=== PATIENT | female | born 1995 | race Caucasian/White ===

== ENCOUNTER → 2021-07-19 12:02 | Outpatient (BNVA) | payer BC, SELFPAY | PROVIDERS: Visit Provider Nurse Practitioner Women's Health | DX: O20.0 Threatened abortion (principal) | CPT/HCPCS: 84702; 85025; 86850; 86900 ==

== ENCOUNTER 2021-07-21 10:14 | Outpatient (CLI) | payer BC, SELFPAY ==
[2021-07-21 10:56] LABS: HCG Quantitative 4.22 mIU/mL
== END 2021-07-21 10:15 | disposition home or self-care (01) ==
LOC: LAB 10:20
PROVIDERS: PCP Nurse Practitioner Family; Visit Provider Nurse Practitioner Women's Health
DX: O20.0 Threatened abortion (principal)
CPT/HCPCS: 36415; 84702

== ENCOUNTER 2021-12-18 16:56 | Outpatient (CLI) | payer BC, SELFPAY | END 2021-12-18 16:57 | disposition home or self-care (01) | PROVIDERS: PCP Nurse Practitioner Family; Visit Provider Obstetrics & Gynecology | DX: Z34.91 Encounter for supervision of normal pregnancy, unspecified, first trimester (principal) | CPT/HCPCS: 84702 ==

== ENCOUNTER → 2021-12-20 08:25 | Outpatient (BNVA) | payer BC, MEDICAID, SELFPAY | PROVIDERS: PCP Nurse Practitioner Family; Visit Provider Obstetrics & Gynecology | DX: Z32.01 Encounter for pregnancy test, result positive (principal) | CPT/HCPCS: 84702 ==

== ENCOUNTER 2022-01-05 08:27 | Outpatient (CLI) | payer BC, MEDICAID, SELFPAY ==
--- NOTE | 2022-01-05 08:45 | US_ITS ---
WS: [id number] ULTRASOUND EARLY TECHNIQUE: Transabdominal sonography of the pelvis was performed. Followed by transvaginal sonography to better evaluate the uterus and ovaries. CLINICAL INFORMATION: Z34.90 - Encounter for supervision of normal , u... LMP: 11/21/2021 Beta hCG: Unknown. COMPARISON: None. FINDINGS: Single live intrauterine gestation with pole and yolk sac. Visualized cardiac activit y UTERUS AND GESTATIONAL SAC Intrauterine gestations: Estimated gestational age: 6w2d Estimated delivery August 29, 2022 Yolk sac: 0.4 cm. [place] rump length (CRL): 0.6 cm. heart motion: 116 BPM. Subchorionic hemorrhage: None. OVARIES Right ovary: Normal. Left ovary: Incidental corpus luteum cyst FREE FLUID None. US/US OB <=14 wk fetus w transvag IMPRESSION: 1. Single live intrauterine with pole and cardiac activity. 2. Estimated gestational age; 6w2d 3. Estimated delivery August 29, 2022 4. Cervix is long and closed. 5. Incidental corpus luteum cyst LEFT ovary. Ovaries otherwise normal. 6. No free fluid.
== END 2022-01-05 08:28 | disposition home or self-care (01) ==
PROVIDERS: PCP Nurse Practitioner Family; Visit Provider Obstetrics & Gynecology
DX: Z34.90 Encounter for supervision of normal pregnancy, unspecified, unspecified trimester (principal)
CPT/HCPCS: 76801; 76817

== ENCOUNTER → 2022-01-12 13:50 | Outpatient (BNVA) | payer BC, MEDICAID, SELFPAY | PROVIDERS: PCP Nurse Practitioner Family; Visit Provider Obstetrics & Gynecology | DX: Z34.90 Encounter for supervision of normal pregnancy, unspecified, unspecified trimester (principal) | CPT/HCPCS: 80307; 84315; 87086 ==

== ENCOUNTER → 2022-02-02 11:47 | Outpatient (BNVA) | payer BC, MEDICAID, SELFPAY | PROVIDERS: PCP Nurse Practitioner Family; Visit Provider Obstetrics & Gynecology | DX: R10.2 Pelvic and perineal pain (principal) | CPT/HCPCS: 81000; 87086 ==

== ENCOUNTER → 2022-02-14 10:26 | Outpatient (BNVA) | payer BC, SELFPAY | PROVIDERS: PCP Nurse Practitioner Family; Visit Provider Obstetrics & Gynecology | DX: Z34.90 Encounter for supervision of normal pregnancy, unspecified, unspecified trimester (principal); Z3A.00 Weeks of gestation of pregnancy not specified | CPT/HCPCS: 84315; 84443; 85025; 86592; 86762; 86803; 86850; 86900; 87340; 87491; 87591; 87661; 87806 ==

== ENCOUNTER → 2022-04-20 11:13 | Outpatient (BNVA) | payer BC, SELFPAY | PROVIDERS: PCP Nurse Practitioner Family; Visit Provider Obstetrics & Gynecology | DX: Z34.90 Encounter for supervision of normal pregnancy, unspecified, unspecified trimester (principal) | CPT/HCPCS: 84315; 87086 ==

== ENCOUNTER → 2022-04-25 13:23 | Outpatient (BNVA) | payer BC, SELFPAY | PROVIDERS: PCP Nurse Practitioner Family; Visit Provider Obstetrics & Gynecology | DX: Z34.90 Encounter for supervision of normal pregnancy, unspecified, unspecified trimester (principal) | CPT/HCPCS: 87086 ==

== ENCOUNTER → 2022-06-08 09:30 | Outpatient (BNVA) | payer BC, MEDICAID, SELFPAY | PROVIDERS: PCP Nurse Practitioner Family; Visit Provider Obstetrics & Gynecology | DX: Z34.90 Encounter for supervision of normal pregnancy, unspecified, unspecified trimester (principal); Z3A.00 Weeks of gestation of pregnancy not specified | CPT/HCPCS: 82950; 84315; 85025; 86850; 87086 ==

== ENCOUNTER → 2022-06-28 08:10 | Outpatient (BNVA) | payer BC, MEDICAID, SELFPAY | PROVIDERS: PCP Nurse Practitioner Family; Visit Provider Obstetrics & Gynecology | DX: Z34.90 Encounter for supervision of normal pregnancy, unspecified, unspecified trimester (principal); Z3A.00 Weeks of gestation of pregnancy not specified | CPT/HCPCS: 81000; 87086 ==

== ENCOUNTER 2022-07-12 09:12 | Outpatient (CLI) | payer BC, MEDICAID, SELFPAY ==
[2022-07-12] VITALS (8 sets, daily range): BP systolic 131–148; BP diastolic 80–86; PULSE 80–99; RESP 16; BMI 38.7
[2022-07-12 09:46] LABS: Basophils % 0.2 %; Eosinophils # 0.1 10^3/uL (0.0-0.8); Eosinophils % 0.8 %; Hematocrit 34.5 % (37.0-47.0); Hemoglobin 11.5 g/dL (11.5-15.3); Lymphocytes # 1.6 10^3/uL (0.8-4.8); Lymphocytes % 17.3 %; Mean Corpuscular HGB Conc 33.3 g/dL (30.0-36.0); Mean Corpuscular Hemoglobin 29.4 pg (28.0-34.0); Mean Corpuscular Volume 88.2 fl (81-99); Mean Platelet Volume 10.2 fL (7.4-10.4); Monocytes # 0.6 10^3/uL (0.2-0.9); Monocytes % 6.3 %; Neutrophils # 6.77 10^3/uL (1.8-7.7); Neutrophils % 74.7 %; Nucleated Red Blood Cells % 0 %; Platelet Count 280 10^3/cmm (130-400); Red Blood Count 3.91 10^6/uL (4.1-5.3); White Blood Count 9.1 10^3/uL (4.0-10.0)
[2022-07-12 10:06] LABS: Alanine Aminotransferase 11 U/L (0-33); Albumin Level 3.5 g/dL (3.5-5.2); Alkaline Phosphatase 87 U/L (35-105); Anion Gap 15.9 (5-19); Aspartate Amino Transferase 15 U/L (0-32); Blood Urea Nitrogen 5 mg/dL (6-20); Calcium 8.8 mg/dL (8.5-10.5); Carbon Dioxide 19 mmol/L (22-29); Chloride 105 mmol/L (98-107); Glomerular Filtration Rate 266.9 mL/min (90-130); Glucose 80 mg/dL (65-115); Osmolality Calculated 278 mOsm/kg (285-295); Potassium 3.9 mmol/L (3.5-5.1); Sodium 136 mmol/L (136-145); Total Bilirubin 0.4 mg/dL (0.15-1.2); Total Protein 6.5 g/dL (6.6-8.7); Uric Acid 4.6 mg/dL (2.4-5.7)
[2022-07-12 10:22] LABS: Urine Creatinine 67 mg/dL (28-217); Urine Protein Random 7 mg/dL
[2022-07-12 10:24] LABS: Add Urine Microscopic? YES; Bilirubin Urine Neg (Negative); Blood Urine Neg (Negative); Glucose Urine UA Norm (Normal); Ketones Urine Negative (Negative); Leukocyte Esterase Urine 2+ (Negative); Nitrate Urine Negative (Negative); Protein Urine Neg (Negative); Squamous Epithelial Cell Urine 25-40 /hpf (0-5); Urine Appearance Clear (CLEAR); Urine Color Yellow (Yellow); Urobilinogen Urine Neg (Negative); pH Urine 7 (5-7)
[2022-07-12 10:25] LABS: Add Urine Culture? No; Bacteria Urine 1+ /hpf
== END 2022-07-12 11:10 | disposition home or self-care (01) ==
LOC: OPOB 09:13 → OBGYN 09:13
PROVIDERS: PCP Nurse Practitioner Family; Visit Provider Obstetrics & Gynecology
DX: O16.9 Unspecified maternal hypertension, unspecified trimester (principal); Z3A.00 Weeks of gestation of pregnancy not specified
CPT/HCPCS: 36415; 59025; 80053; 81000; 81001; 82570; 84156; 84550; 85025; 87086; 99211

== ENCOUNTER 2022-07-19 11:35 | Outpatient (CLI) | payer BC, MEDICAID, SELFPAY ==
[2022-07-19 11:54] VITALS: BP 127/73; PULSE 109
[2022-07-19 12:08] VITALS: RESP 16; TEMP 36.6
--- NOTE | 2022-07-19 12:08 | US_ITS ---
WS: [id number] BIOPHYSICAL PROFILE AMNIOTIC FLUID HISTORY: elevated blood pressure COMPARISON: 05/07/2020. Cardiac activity: 144 bpm. Cervix: closed. Placenta: Anterior, no previa or abruption. Placenta grade: 1 Parameters are as follows: Breathin Movement: 2 Tone: 2 Fluid volume: 2 Amniotic fluid index: 12.4 cm. Deepest vertical pocket 4.2 cm. US/US OB BPP wo NST [id number] IMPRESSION: 1. Biophysical profile score: 8/8. 2. Normal amniotic fluid.
[2022-07-19 12:19] VITALS: BMI 38.5
[2022-07-19 12:26] VITALS: BP 127/85; PULSE 84
[2022-07-19 12:46] VITALS: BP 116/71; PULSE 87
[2022-07-19 12:55] VITALS: BP 116/71; PULSE 87
== END 2022-07-19 12:55 | disposition home or self-care (01) ==
LOC: OPOB 11:43 → OBGYN 11:44
PROVIDERS: PCP Nurse Practitioner Family; Visit Provider Obstetrics & Gynecology
DX: O16.9 Unspecified maternal hypertension, unspecified trimester (principal); Z3A.00 Weeks of gestation of pregnancy not specified
CPT/HCPCS: 59025; 76819; 99211

== ENCOUNTER → 2022-07-26 11:00 | Outpatient (BNVA) | payer BC, MEDICAID, SELFPAY | PROVIDERS: PCP Nurse Practitioner Family; Visit Provider Obstetrics & Gynecology | DX: Z34.90 Encounter for supervision of normal pregnancy, unspecified, unspecified trimester (principal) | CPT/HCPCS: 84315; 87086 ==

== ENCOUNTER 2022-08-09 13:31 | Outpatient (CLI) | payer BC, MEDICAID, SELFPAY ==
[2022-08-09 13:45] VITALS: BP 129/81; PULSE 97
[2022-08-09 13:46] VITALS: RESP 16
[2022-08-09 14:00] VITALS: BP 114/74; PULSE 89
[2022-08-09 14:12] LABS: Basophils % 0.2 %; Eosinophils # 0.1 10^3/uL (0.0-0.8); Eosinophils % 0.7 %; Hematocrit 34.1 % (37.0-47.0); Hemoglobin 11.2 g/dL (11.5-15.3); Lymphocytes # 1.9 10^3/uL (0.8-4.8); Lymphocytes % 16.4 %; Mean Corpuscular HGB Conc 32.8 g/dL (30.0-36.0); Mean Corpuscular Hemoglobin 28.7 pg (28.0-34.0); Mean Corpuscular Volume 87.4 fl (81-99); Mean Platelet Volume 10.6 fL (7.4-10.4); Monocytes # 0.9 10^3/uL (0.2-0.9); Monocytes % 7.7 %; Neutrophils # 8.74 10^3/uL (1.8-7.7); Neutrophils % 74.4 %; Nucleated Red Blood Cells % 0 %; Platelet Count 348 10^3/cmm (130-400); Red Cell Distribution Width 13.4 % (12.1-15.1); White Blood Count 11.7 10^3/uL (4.0-10.0)
[2022-08-09 14:15] VITALS: BP 112/67; PULSE 85
[2022-08-09 14:17] LABS: UPRO/UCREAT Ratio 0.13 mg/mg CR; Urine Creatinine 78 mg/dL (28-217); Urine Protein Random 10 mg/dL
[2022-08-09 14:28] LABS: Alanine Aminotransferase 27 U/L (0-33); Albumin Level 3.4 g/dL (3.5-5.2); Alkaline Phosphatase 113 U/L (35-105); Aspartate Amino Transferase 24 U/L (0-32); Blood Urea Nitrogen 5 mg/dL (6-20); Calcium 8.7 mg/dL (8.5-10.5); Carbon Dioxide 21 mmol/L (22-29); Chloride 103 mmol/L (98-107); Globulin 2.8 g/dL (1.3-4.6); Glucose 75 mg/dL (65-115); Osmolality Calculated 276 mOsm/kg (285-295); Sodium 135 mmol/L (136-145); Total Bilirubin 0.4 mg/dL (0.15-1.2); Total Protein 6.2 g/dL (6.6-8.7); Uric Acid 5.2 mg/dL (2.4-5.7)
[2022-08-09 14:29] VITALS: BP 115/73; PULSE 85
== END 2022-08-09 14:45 | disposition home or self-care (01) ==
LOC: OPOB 13:37 → OBGYN 13:38
PROVIDERS: PCP Nurse Practitioner Family; Visit Provider Obstetrics & Gynecology
DX: O16.9 Unspecified maternal hypertension, unspecified trimester (principal); Z3A.00 Weeks of gestation of pregnancy not specified
CPT/HCPCS: 36415; 59025; 80053; 81000; 82570; 84156; 84550; 85025; 87081; 87086; 99211

== ENCOUNTER → 2022-08-15 10:20 | Outpatient (BNVA) | payer BC, MEDICAID, SELFPAY | PROVIDERS: PCP Nurse Practitioner Family; Visit Provider Obstetrics & Gynecology | DX: O09.899 Supervision of other high risk pregnancies, unspecified trimester (principal); R82.90 Unspecified abnormal findings in urine | CPT/HCPCS: 81000; 87086 ==

== ENCOUNTER → 2022-08-22 09:39 | Outpatient (BNVA) | payer BC, SELFPAY | PROVIDERS: PCP Nurse Practitioner Family; Visit Provider Obstetrics & Gynecology | DX: O09.899 Supervision of other high risk pregnancies, unspecified trimester (principal) | CPT/HCPCS: 81000; 87086 ==

== ENCOUNTER 2022-08-28 05:27 | Inpatient (IN) | payer BC, MEDICAID, SELFPAY ==
[2022-08-28] VITALS (125 sets, daily range): BP systolic 102–148; BP diastolic 56–87; PULSE 68–136; RESP 17–18; TEMP 35.7–36.2; O2SAT 96–100; BMI 38.4
[2022-08-28 05:41] LABS: Basophils % 0.2 %; Eosinophils # 0.1 10^3/uL (0.0-0.8); Eosinophils % 0.8 %; Hematocrit 34.2 % (37.0-47.0); Hemoglobin 11.4 g/dL (11.5-15.3); Lymphocytes # 2.8 10^3/uL (0.8-4.8); Lymphocytes % 22.9 %; Mean Corpuscular HGB Conc 33.3 g/dL (30.0-36.0); Mean Corpuscular Hemoglobin 28.9 pg (28.0-34.0); Mean Corpuscular Volume 86.6 fl (81-99); Mean Platelet Volume 10.2 fL (7.4-10.4); Monocytes # 0.8 10^3/uL (0.2-0.9); Monocytes % 6.1 %; Neutrophils # 8.51 10^3/uL (1.8-7.7); Neutrophils % 69.3 %; Nucleated Red Blood Cells % 0 %; Platelet Count 327 10^3/cmm (130-400); Red Blood Count 3.95 10^6/uL (4.1-5.3); Red Cell Distribution Width 13.6 % (12.1-15.1); White Blood Count 12.3 10^3/uL (4.0-10.0)
[2022-08-28 05:44] LABS: Nitrazine Paper, PH Positive
--- NOTE | 2022-08-28 07:05 | PM.OPHPUD ---
Labor & Delivery H&P Update Date of Procedure: August 28, 2022 Date H&P Performed: 08/22/22 H&P update information: I have reviewed H&P completed within last 30 days, I have examined patient prior to procedure and Changes to prior documentation as noted here Changes to previous documentation: The patient presents with SROM. confirmed with nitrazine. cervix is now 4-5/75/-3 Admission Diagnosis: Related Problem List Diagnoses (1) Supervision of other high risk , antepartum: (2) Gestational hypertension: (3) Rh negative status during : (4) Anxiety and depression:
[2022-08-28] MEDS: dextrose 5%-lactated ringers 1,000 ML 125 ML IV ×2 (10:43→15:20)
[2022-08-28] MEDS: oxytocin 30 UNIT/500 ML BAG IV (10:44)
[2022-08-28] MEDS: lactated ringers 1,000 ML 999 ML IV (11:01)
--- NOTE | 2022-08-28 12:42 | ANES.PREANE2 ---
Pre-Anesthetic Assessment Height/Weight: Height 1.75 m Weight 117.934 kg Temp Pulse Resp BP Pulse Ox O2 Del Method 96.6 F L 87 17 129/68 99 08/28/22 10:19 08/28/22 12:39 08/28/22 06:00 08/28/22 12:39 08/28/22 12:38 08/28/22 05:21 Familial anesthetic complications: none Was Beta Abhi taken within 24 hours: N/A Was Clonidine taken within 24 hours: N/A Social No alcohol and No tobacco Exam alert, oriented x 3, clear to auscultation bilaterally and regular rate & rhythm Airway Submandibular: within normal limits Cervical ROM: within normal limits Mallampati: Class II Dentition: full CV/HEM Hypertension Metabolic Morbid Obesity Anesthetic Plan ASA status: 2 Anesthesia: Regional (specify below) (Labor Epidural) Medications/Allergies Home Medications Medication Instructions Recorded Confirmed Last Taken Type PNV 153-FA 400 mcg-om3 35 mg-dha tab PO 01/12/22 08/22/22 08/27/22 History 25 mg-epa 5 mg-fish oil chew tablet ( Gummies) buspirone 15 mg tablet 15 mg PO TID 01/12/22 08/28/22 08/27/22 History citalopram 20 mg tablet (Celexa) 40 mg PO DAILY 01/12/22 08/28/22 08/27/22 History ondansetron HCl 4 mg tablet 4 mg PO Q6H PRN Nausea 08/28/22 08/28/22 Unknown History Allergies Allergy/AdvReac Type Severity Reaction Status Date / Time No Known Allergies Allergy Verified 08/28/22 06:06 Current Medications Generic Name Dose Route Start Last Admin Trade Name Freq PRN Reason Stop Dose Admin Dextrose/Lactated Ringer's 1,000 mls @ 125 mls/hr 08/28/22 05:30 08/28/22 12:16 Dextrose 5%-Lactated Ringers IV 999 mls/hr .Q8H SHREYAS Infusion Oxytocin 30 unit in 500 mls @ 1 mls/hr 08/28/22 10:30 08/28/22 11:45 Pitocin IV 5 milliunit/min .Q24H SHREYAS 5 mls/hr Titration Protocol 1 MILLIUNIT/MIN Ropivacaine 200 mg in 100 mls @ 13 mls/hr 08/28/22 10:45 08/28/22 12:10 Naropin Premix EPIDURAL 13 mls/hr .Q7H42M SHREYAS Administration Lactated Ringer's 1,000 mls @ 999 mls/hr 08/28/22 10:44 08/28/22 12:16 Lactated Ringers IV Infused .Q1H1M PRN Infusion See label comments PFSH Anesthesia Medical History Anxiety and depression No pertinent past medical history neghx: htn,dm,thyroid,dvt/pe PCP: Kimberly Foster--- [facility] [place] Surgical History Hx of wisdom tooth extraction (~2012) Family History Father Hypertension Denies family history of Colon cancer Ovarian cancer Diabetes Heart disease Hypercholesteremia Breast cancer Uterine cancer Thyroid disease Stroke Social History Smoking and tobacco status: never smoked Female Reproductive History : 2 Data Anesthesia 08/28/22 05:30 Short CBC 08/28/22 Range/Units 05:30 WBC 12.3 H (4.0-10.0) 10^3/uL Hgb 11.4 L (11.5-15.3) g/dL Hct 34.2 L (37.0-47.0) % MCV 86.6 (81-99) fl Plt Count 327 (130-400) 10^3/cmm Neut % (Auto) 69.3 % Neut # (Auto) 8.51 H (1.8-7.7) 10^3/uL Cardiac Studies: No Data to Display Anesthesia Procedures Epidural Time Out Performed: Yes Consents Signed: Procedure Consent Consent: requested by attending/covering physician, from patient, risks and benefits reviewed and patient agrees to proceed Lumbar Level: L3-L4 Epidural position: sitting Epidural procedure: sterile prep of area, 1% lidocaine to numb the area, 18 g needle, neg for paresthesia, test dose given, 1.5% xylocaine 1:200k epi, placed PCEA, no systemic response, sterile dressing applied, L.U.D. no apparent complications and 0.2% Ropiavacaine @ mls/hr (13) Additional Comments: NICOLÁS at 6cm, Cath to 11cm, bolused 5mls of 2% lido MPF (epi)
[2022-08-28] MEDS: ondansetron 2 mg/ML SDV 2 mL 4 MG IVP (18:21)
[2022-08-29] VITALS (37 sets, daily range): BP systolic 125–177; BP diastolic 63–90; PULSE 62–142; RESP 14–18; TEMP 36.2–36.7; O2SAT 98
--- NOTE | 2022-08-29 02:25 | PM.DELIVERY ---
Delivery Note: Date of delivery: August 29, 2022 Pre-delivery diagnoses: iup@40w1d, PROM, rh negative, anxiety and depression, gestational hypertension Post-delivery diagnoses: same-delivered Procedure: Delivering Physician: elin Estimated blood loss (mL): 50 Pre-Delivery Course: The patient was admitted with gross rupture of membranes. She was allowed to labor naturally, but made no progress. Pitocin was started. The patient received an epidural for pain management. She made cervical progress and had complete cervical dilation. She was allowed to labor down and then began pushing. Delivery: The patient had complete cervical dilation and began to push. The head delivered in the KYMBER[place] position over an intact perineum under epidural anesthesia. The shoulders and body delivered atraumatically. The baby was placed onto the mother's abdomen. The nose and mouth were bulb suctioned. The cord was clamped and cut. Cord blood was obtained. The placenta delivered spontaneously. It was inspected and found to be intact. Inspection of the perineum revealed the perineum to be intact however there was a vaginal laceration. There is no degree of laceration since this is vaginal. This was repaired in the usual fashion with 3 interrupted sutures.. Estimated blood loss 50 mL. Apgars on baby were 8 at 1 minute and 9 at 5 minutes. Weight of baby is 7 pounds 13 ounces. Mother and baby were stable post delivery. History History History 2 Term 0 0 Miscarriages/Ectopic 1 Living Children 0 Coding Level of Care Code Acute Code for Chg Fwd
[2022-08-29] MEDS: oxytocin 30 UNIT/500 ML BAG 60 UNIT IV (03:20)
--- NOTE | 2022-08-29 09:38 | ANE.PACU2 ---
Inpatient post-anesthesia follow up: Airway intact: Yes Vital signs: Temperature 98.0 F Pulse Rate 70 Respiratory Rate 17 Blood Pressure 134/90 Pulse Oximetry 98 Oxygen Delivery Me thod Room Air Oxygen Flow Rate Fraction of Inspir ed Oxygen Hydration adequate: Yes Nausea and vomiting: No Pain level: 2 Mental status: Baseline
[2022-08-29] MEDS: prenatal vitamin Capsule 1 CAP PO (10:27)
[2022-08-29] MEDS: ibuprofen 800 mg tablet PO ×3 (10:27→20:32)
[2022-08-29] MEDS: citalopram 20 mg Tablet 40 MG PO (10:28)
[2022-08-29] MEDS: BuSPIRONE 10 mg Tablet 15 MG PO ×2 (10:28→20:33)
[2022-08-29] MEDS: docusate sodium 100 mg Capsule PO ×2 (10:28→20:33)
[2022-08-29 17:52] LABS: Hematocrit 27.7 % (37.0-47.0); Hemoglobin 9.2 g/dL (11.5-15.3); Mean Corpuscular HGB Conc 33.2 g/dL (30.0-36.0); Mean Corpuscular Hemoglobin 29.6 pg (28.0-34.0); Mean Corpuscular Volume 89.1 fl (81-99); Platelet Count 320 10^3/cmm (130-400); Red Blood Count 3.11 10^6/uL (4.1-5.3); Red Cell Distribution Width 13.9 % (12.1-15.1); White Blood Count 15.1 10^3/uL (4.0-10.0)
[2022-08-29] MEDS: lanolin oint 7 gm 1 APPLIC TOPICAL (22:20)
[2022-08-30 04:40] VITALS: BP 127/84; PULSE 76; RESP 16; TEMP 36.7; O2SAT 97
--- NOTE | 2022-08-30 09:16 | P.DS_ITS ---
Discharge Providers Date of Admission: 08/28/22 05:27 Date of Discharge: August 30, 2022 Attending Provider at Admission: Deidra Valdez MD Attending Provider at Discharge: Deidra Valdez MD Primary Care Provider: AMAN Cardenas Diagnoses at Discharge Discharge Diagnosis (1) Supervision of other high risk , antepartum: Status: Acute (2) Gestational hypertension: Status: Acute (3) Rh negative status during : Status: Acute (4) Anxiety and depression: Status: Acute Reason for Visit Reason for Visit: Possible ROM Hospital Course Hospital Course The patient was admitted for SROM. She had a vaginal delivery of a term . She did well and was ready for discharge on day #1 Physical Exam Narrative: The patient is doing well. No concerns this morning. Const: COMMON NORMALS: no acute distress, patient oriented x3, no limitations, healthy appearing, alert and well nourished GENERAL APPEARANCE: cooperative, comfortable, well kempt and well developed ORIENTATION/CONSCIOUSNESS: Yes awake, Yes oriented to person, Yes oriented to place and Yes oriented to time Resp: COMMON NORMALS: normal respiratory effort EFFORT & INSPECTION: Yes able to speak in complete sentences GI: COMMON NORMALS: Soft to palpation and non-tender PALPATION: Yes Soft to palpation Extremity: COMMON NORMALS: no calf tenderness Neuro: COMMON NORMALS: patient oriented x3 SENSORIUM/ORIENTATION: Yes alert, Yes oriented to person, Yes oriented to place and Yes oriented to time Psych: COMMON NORMALS: mental status grossly normal, Normal thought process present, cooperative, normal affect and speech normal APPEARANCE: Yes well kempt SPEECH: Yes normal speech THOUGHT PROCESS: Normal thought process present Urinary Catheter Management: Brown Latex: Cath Placed During This Visit: yes, but has since been removed by the nurse Reason for Continuing Indwelling Catheter: Decision to DC Catheter Urinary Catheter Date of Insertion: 08/28/22 Urinary Catheter Time of Insertion: 12:45 Date Urinary Catheter Removed: 08/29/22 Time Urinary Catheter Discontinued: 01:40 Discharge Data Studies Completed and Pending Laboratory Results WBC 15.1 10^3/uL (4.0-10.0) H 08/29/22 16:08 RBC 3.11 10^6/uL (4.1-5.3) L 08/29/22 16:08 Hgb 9.2 g/dL (11.5-15.3) L 08/29/22 16:08 Hct 27.7 % (37.0-47.0) L 08/29/22 16:08 MCV 89.1 fl (81-99) 08/29/22 16:08 MCH 29.6 pg (28.0-34.0) 08/29/22 16:08 MCHC 33.2 g/dL (30.0-36.0) 08/29/22 16:08 RDW 13.9 % (12.1-15.1) 08/29/22 16:08 Plt Count 320 10^3/cmm (130-400) 08/29/22 16:08 MPV 11.0 fL (7.4-10.4) H 08/29/22 16:08 Neut % (Auto) 69.3 % 08/28/22 05:30 Lymph % (Auto) 22.9 % 08/28/22 05:30 Jackson % (Auto) 6.1 % 08/28/22 05:30 Eos % (Auto) 0.8 % 08/28/22 05:30 Baso % (Auto) 0.2 % 08/28/22 05:30 Neut # (Auto) 8.51 10^3/uL (1.8-7.7) H 08/28/22 05:30 Lymph # (Auto) 2.8 10^3/uL (0.8-4.8) 08/28/22 05:30 Jackson # (Auto) 0.8 10^3/uL (0.2-0.9) 08/28/22 05:30 Eos # (Auto) 0.1 10^3/uL (0.0-0.8) 08/28/22 05:30 Baso # (Auto) 0.0 10^3/uL (0.0-0.1) 08/28/22 05:30 Nucleated RBC % (auto) 0 % 08/28/22 05:30 Nucleated RBCs # 0.0 /100WBC 08/28/22 05:30 Blood Type O Negative 08/28/22 05:30 Rho(D) Type Negative 08/28/22 05:30 Antibody Screen Negative 08/28/22 05:30 Screen Negative (Negative) 08/29/22 16:08 Vitals Last Vital Signs Temp 98.0 F 08/30/22 04:40 Pulse 76 08/30/22 04:40 Resp 16 08/30/22 04:40 BP 127/84 08/30/22 04:40 Pulse Ox 97 08/30/22 04:40 O2 Del Method 08/30/22 04:40 Discharge Plan Discharge Patient Disposition: Home Condition: Stable Prescriptions: Continued citalopram [Celexa] 20 mg tablet 40 mg PO DAILY buspirone 15 mg tablet 15 mg PO TID Gummies 400 mcg-35 mg- 25 mg-5 mg tablet,chewable PO ondansetron HCl 4 mg tablet 4 mg PO Q6H PRN (Reason: Nausea) Discharge Orders: Discharge Order (Routine); Ordered 08/30/22 Ordered By: Deidra Valdez Referrals: Deidra Valdez MD [Physician] - 09/12/22 10:00 am ( Your [address] week follow up with Dr Valdez is on September 12 at 10:00am Your 6 week follow up with Dr Valdez is on October 03 at 10:30am ) Patient Instructions: Depression (GEN), Bleeding (GEN), Preeclampsia and Eclampsia After Delivery (GEN), COVID-19 and (GEN), Hemorrhage (GEN), OB Discharge Report, OB Food/Drug Interaction Guide, OB Care at Home, Opioid Safety, OB [facility], OB Vaginal Deliveries, Abnormal Bleeding Discharge Attestations Time Spent in Discharge Care*: less than 30 min Quality Metrics Clinical Quality Measures [ No reported AMI, CVA or VTE this stay] Coding Level of Care Code Acute Code for Chg Fwd Diagnoses Supervision of other high risk , antepartum O09.899 Gestational hypertension O13.9 Rh negative status during O26.899; Z67.91 Anxiety and depression F41.9; F32.A
[2022-08-30] MEDS: ibuprofen 800 mg tablet PO (10:15)
[2022-08-30] MEDS: docusate sodium 100 mg Capsule PO (10:15)
[2022-08-30 10:20] VITALS: BP 142/87; PULSE 75; RESP 16; RESP 17; TEMP 36.5
== END 2022-08-30 11:55 | disposition home or self-care (01) | DRG 806 ==
LOC: OPOB 06:51 → OBGYN 06:51
PROVIDERS: Admitting Provider Obstetrics & Gynecology; PCP Nurse Practitioner Family; Visit Provider Obstetrics & Gynecology
DX: O48.0 Post-term pregnancy (principal); O36.0930 Maternal care for other rhesus isoimmunization, third trimester, not applicable or unspecified; Z37.0 Single live birth; O71.4 Obstetric high vaginal laceration alone; Z3A.40 40 weeks gestation of pregnancy; O99.344 Other mental disorders complicating childbirth; O13.4 Gestational [pregnancy-induced] hypertension without significant proteinuria, complicating childbirth; F41.9 Anxiety disorder, unspecified; F32.A Depression, unspecified
CPT/HCPCS: 36415; 51702; 59025; 59409; 83986; 85025; 85027; 85460; 86850; 86900; 90384; 98960; J2405; J2590; J2795; J7120; J7121

== ENCOUNTER → 2023-02-06 14:02 | Outpatient (BNVA) | payer BC, MEDICAID, SELFPAY | PROVIDERS: PCP Nurse Practitioner Family; Visit Provider Obstetrics & Gynecology | DX: L65.9 Nonscarring hair loss, unspecified (principal) | CPT/HCPCS: 84443 ==